=== PATIENT | male | born 1970 | race Caucasian/White ===

== ENCOUNTER 2022-05-01 12:46 | HOS | payer OTHER, SELFPAY ==
[2022-05-01 12:54] VITALS: BP 138/99; PULSE 84; RESP 16; TEMP 36.4; O2SAT 100
[2022-05-01 13:34] VITALS: PULSE 84; RESP 16
[2022-05-01] MEDS: HYDROmorphone HCL/PF (*CRX) 50 MG in SODIUM CHLORIDE 0.9% IV 95 ML IV CONT (13:34)
[2022-05-01] MEDS: LORazepam INJ (*CRX) 2 MG/ML VIAL 1 MG IV PUSH ×3 (14:06→19:39)
[2022-05-01 20:00] VITALS: PULSE 76; RESP 18; O2SAT 94
[2022-05-01 20:37] VITALS: BP 120/87; PULSE 76; RESP 18; TEMP 36.8; O2SAT 94
[2022-05-02 08:00] VITALS: PULSE 76; RESP 18; O2SAT 94
[2022-05-02] MEDS: LORazepam INJ (*CRX) 2 MG/ML VIAL 1 MG IV PUSH ×2 (12:12→18:36)
[2022-05-02 12:15] VITALS: PULSE 70; RESP 16
[2022-05-02] MEDS: HYDROmorphone HCL/PF (*CRX) 50 MG in SODIUM CHLORIDE 0.9% IV 95 ML IV CONT (12:15)
--- NOTE | 2022-05-02 12:51 | PM.IMHP ---
H&P: HPI History of Present Illness Date/Time: 05/02/22 12:51 Chief Complaint: Uncontrolled agitation Narrative: Mr. Ly is a 52-year-old gentleman who was on hospice for metastatic lung cancer. Over the past week he has not been eating or drinking much. He is recumbent mentally agitated and pocketing pills and spitting out oral medication. He was on scheduled Dilaudid. He has been taking only 10 mg of methadone twice daily with no additional pain medications. He refuses to take p.o. lorazepam. On May 01 he was agitated and aggressive even with his mother. Family was fatigued and unable to for care for him at home due to his physical aggression and mental agitation. He was trying to get out of bed but was unable. He has become incontinent. He is oriented to person only. He is able to make needs known most of the time. There has been no issue with coughing. He has had some intermittent poorly localized pain. No fevers or chills. No nausea or vomiting. [facility] Past Medical History Medical History (Updated 05/02/22 @ 12:57 by Saul Bass MD) COPD (chronic obstructive pulmonary disease) Lung cancer Surgical History Surgical History (Updated 11/09/19 @ 01:07 by Michael Dorsey) No history of previous surgery Family History Family History Mother No problems noted. Social History Social History (Updated 11/09/19 @ 01:07 by Michael Dorsey) Smoking packs per day: 1 Smoking cigarettes per day: 20.0 Smoking status: Current every day smoker Tobacco type: cigarettes Gender identity (if verbalized by the patient): Male Spiritual care concerns: Yes (preacher to come visit) Meds Home Medications and Allergies Home Medications Medication Instructions Recorded Confirmed Type No Home Medications 05/01/22 05/01/22 History Allergies Allergy/AdvReac Type Severity Reaction Status Date / Time acetaminophen AdvReac Mild ITCHY Verified 11/08/19 22:36 HYDROCODONE BIT AdvReac Mild ITCHY Uncoded 11/08/19 22:36 Vital Signs Vital Signs - 24 hr 05/01/22 12:54 05/01/22 13:34 05/01/22 20:37 Temperature 97.6 F 98.2 F Pulse Rate 84 84 76 Respiratory Rate 16 16 18 Blood Pressure 138/99 H 120/87 Pulse Oximetry 100 94 Oxygen Delivery 05/01/22 20:00 05/02/22 08:00 05/02/22 12:15 Temperature Pulse Rate 76 76 70 Respiratory Rate 18 18 16 Blood Pressure Pulse Oximetry 94 94 Oxygen Delivery Room Air Room Air 05/02/22 12:15 Temperature Pulse Rate 70 Respiratory Rate 16 Blood Pressure Pulse Oximetry Oxygen Delivery Exam Narrative: HEENT: PERRL, sclerae nonicteric, pharyngeal mucosa pink and intact NECK: No JVD CHEST: Coarse BS. Normal effort. HEART: NL S1/S2, regular, no murmur ABDOMEN: BS+, soft, nontender, no mass, no bruits EXTREMITIES: 2+ pitting ankle edema NEUROLOGIC: CN intact and symmetric to inspection. MUSCULOSKELETAL: Tone and strength symmetric but with generalized weakness PSYCH: Drowsy. Ox1. Assessment and Plan Assessment and plan (1) Palliative care by specialist: Code(s): Z51.5 - Encounter for palliative care Status: Acute Assessment and Plan: Meets inpatient hospice criteria due to requiring continuous IV hydromorphone for analgesia and intermittent IV lorazepam for agitation He is likely experiencing end of life delirium due to a combination of dehydration, malnutrition, metastatic lung cancer with possible hypercalcemia, and medication 7/4 current palliative regimen effective for symptom control (2) Lung cancer: Code(s): C34.90 - Malignant neoplasm of unspecified part of unspecified bronchus or lung Status: Acute
[2022-05-02 14:41] VITALS: BP 96/79; PULSE 80; RESP 20; TEMP 37.2; O2SAT 94
--- NOTE | 2022-05-02 15:29 | WPDPN ---
Progress Note: A&P Additional Plan Continue to monitor. Time Spent With Patient Time: 15 minutes. Subjective Date/time seen: 05/02/22 15:29 Review of Systems Review of Systems: Patient was lethargic and unable to answer most questions. He denied pain and looked comfortable. Exam Narrative: Lungs are diminished to all lobes. No gross deformities noted. Abdomen is soft, non-tender, with + bowel sounds. Pt has +1 pitting edema to bilateral lower extremities. Cardiac regular rate and rhythm. Denies pain and is well controlled on Dilaudid 2 mg/hr. Has only received 1 prn dose of Ativan since arrival. Family at bedside and coping appropriately. No further questions at this time. Spoke with RN Cyndee who stated that she has no concerns at this time and knows to call [facility] with any needs or change in condition. No mottling. Good radial pulses. No dyspnea or apnea noted. Const: Other: Patient was lethargic and oriented to self and place, at times. Objective Data Vital Signs Vital Signs: Vital Signs - 24 hr 05/01/22 20:37 05/01/22 20:00 05/02/22 08:00 Temperature 36.8 C Pulse Rate 76 76 76 Respiratory Rate 18 18 18 Blood Pressure 120/87 Pulse Oximetry 94 94 94 Oxygen Delivery Room Air Room Air 05/02/22 12:15 05/02/22 12:15 05/02/22 14:41 Temperature 37.2 C Pulse Rate 70 70 80 Respiratory Rate 16 16 20 Blood Pressure 96/79 L Pulse Oximetry 94 Oxygen Delivery Intake/Output Intake/Output: Intake & Output 04/29/22 04/30/22 05/01/22 05/02/22 23:59 23:59 23:59 23:59 Intake Total 100 Balance 100 Meds/Results Medications: Active Medications Generic Name Dose Route Start Last Admin Trade Name Freq PRN Reason Stop Dose Admin Acetaminophen 650 mg 05/01/22 13:15 Acetaminophen 650 Mg Suppository RECTAL Q6H PRN Fever Artificial Tears 1 drop 05/01/22 21:00 05/02/22 11:32 Artificial Tears Ophth Soln 15 Ml Bottle EACH EYE Not Given Q12H ALOK Artificial Tears 1 drop 05/01/22 13:16 Artificial Tears Ophth Soln 15 Ml Bottle EACH EYE PRN PRN DRY EYES Bisacodyl 10 mg 05/01/22 13:15 Bisacodyl 10 Mg Suppository RECTAL DAILY PRN Constipation Glycopyrrolate 0.1 mg 05/01/22 13:14 Glycopyrrolate Inj (*Sp) 0.2 Mg/Ml Vial IV PUSH Q6H PRN CONGESTION/SECRETIONS Hydromorphone HCl 2 mg 05/01/22 13:12 Hydromorphone Hcl Inj (*Crx) 1 Mg/Ml Syr IV PUSH Q2H PRN PAIN/DYSPNEA Hydromorphone HCl 50 mg/ 100 mls @ 2 mls/hr 05/01/22 13:15 05/02/22 12:15 Sodium Chloride IV CONT 1 mg/hr .Q24H ALOK 2 mls/hr Administration 1 MG/HR Lorazepam 1 mg 05/01/22 13:13 05/02/22 12:12 Lorazepam Inj (*Crx) 2 Mg/Ml Vial IV PUSH 1 mg Q2H PRN Administration Anxiety Olanzapine 2.5 mg 05/01/22 13:08 Olanzapine 10 Mg Inj Vial IM Q6H PRN Agitation Prochlorperazine Edisylate 10 mg 05/01/22 13:15 Prochlorperazine Edisylate 10 Mg/2 Ml Vial IV PUSH Q6H PRN Nausea And Vomiting
[2022-05-02 20:00] VITALS: BP 112/83; PULSE 80; PULSE 88; RESP 16; RESP 20; TEMP 36.7; O2SAT 90; O2SAT 94
[2022-05-03] MEDS: LORazepam INJ (*CRX) 2 MG/ML VIAL 1 MG IV PUSH ×3 (04:20→21:43)
[2022-05-03 14:00] VITALS: BP 113/81; PULSE 80; RESP 14; TEMP 36.3; O2SAT 87
[2022-05-03] MEDS: HYDROmorphone HCL/PF (*CRX) 50 MG in SODIUM CHLORIDE 0.9% IV 95 ML IV CONT (14:35)
--- NOTE | 2022-05-03 17:04 | PM.IMPN ---
Progress Note: A&P Assessment and Plan (1) Palliative care by specialist: Code(s): Z51.5 - Encounter for palliative care Status: Acute Assessment and Plan: Meets inpatient hospice criteria due to requiring continuous IV hydromorphone for analgesia and intermittent IV lorazepam for agitation He is likely experiencing end of life delirium due to a combination of dehydration, malnutrition, metastatic lung cancer with possible hypercalcemia, and medication 05/02 current palliative regimen effective for symptom control 05/03 current palliative regimen effective for symptom control (2) Lung cancer: Code(s): C34.90 - Malignant neoplasm of unspecified part of unspecified bronchus or lung Status: Acute Subjective Date/time seen: 05/03/22 17:04 Intermittently tearful. Comfortable otherwise. Minimal PO intake. At peace and ready to . Review of Systems Review of Systems: ROS unobtainable: Yes unobtainable due to medical condition Exam Narrative: HEENT: PERRL, sclerae nonicteric, pharyngeal mucosa pink and intact NECK: No JVD CHEST: Coarse BS. Normal effort. HEART: NL S1/S2, regular, no murmur ABDOMEN: BS+, soft, nontender, no mass, no bruits EXTREMITIES: 2+ pitting ankle edema NEUROLOGIC: CN intact and symmetric to inspection. MUSCULOSKELETAL: Tone and strength symmetric but with generalized weakness PSYCH: Drowsy. Ox1. Objective Data Vital Signs Vital Signs: Vital Signs - 24 hr 05/02/22 20:00 05/02/22 20:00 05/03/22 14:00 Temperature 98.0 F 97.3 F L Pulse Rate 80 88 80 Respiratory Rate 20 16 14 Blood Pressure 112/83 113/81 Pulse Oximetry 94 90 87 L Oxygen Delivery Room Air Intake/Output Intake/Output: Intake & Output 04/30/22 05/01/22 05/02/22 05/03/22 23:59 23:59 23:59 23:59 Intake Total 100 100 Output Total 150 Balance 100 -50 Meds/Results Medications: Active Medications Generic Name Dose Route Start Last Admin Trade Name Freq PRN Reason Stop Dose Admin Acetaminophen 650 mg 05/01/22 13:15 Acetaminophen 650 Mg Suppository RECTAL Q6H PRN Fever Artificial Tears 1 drop 05/01/22 21:00 05/03/22 10:15 Artificial Tears Ophth Soln 15 Ml Bottle EACH EYE Not Given Q12H ALOK Artificial Tears 1 drop 05/01/22 13:16 Artificial Tears Ophth Soln 15 Ml Bottle EACH EYE PRN PRN DRY EYES Bisacodyl 10 mg 05/01/22 13:15 Bisacodyl 10 Mg Suppository RECTAL DAILY PRN Constipation Glycopyrrolate 0.1 mg 05/01/22 13:14 Glycopyrrolate Inj (*Sp) 0.2 Mg/Ml Vial IV PUSH Q6H PRN CONGESTION/SECRETIONS Hydromorphone HCl 2 mg 05/01/22 13:12 Hydromorphone Hcl Inj (*Crx) 1 Mg/Ml Syr IV PUSH Q2H PRN PAIN/DYSPNEA Hydromorphone HCl 50 mg/ 100 mls @ 2 mls/hr 05/01/22 13:15 05/03/22 14:35 Sodium Chloride IV CONT 1 mg/hr .Q24H ALOK 2 mls/hr Administration 1 MG/HR Lorazepam 1 mg 05/01/22 13:13 05/03/22 14:34 Lorazepam Inj (*Crx) 2 Mg/Ml Vial IV PUSH 1 mg Q2H PRN Administration Anxiety Olanzapine 2.5 mg 05/01/22 13:08 Olanzapine 10 Mg Inj Vial IM Q6H PRN Agitation Prochlorperazine Edisylate 10 mg 05/01/22 13:15 Prochlorperazine Edisylate 10 Mg/2 Ml Vial IV PUSH Q6H PRN Nausea And Vomiting
[2022-05-03 20:00] VITALS: BP 95/77; PULSE 85; RESP 16; TEMP 37.6; O2SAT 91
[2022-05-03] MEDS: ARTIFICIAL TEARS OPHTH SOLN 15 ML BOTTLE 1 DROP EACH EYE (21:00)
[2022-05-04 07:45] VITALS: BP 92/65; PULSE 81; RESP 14; TEMP 36.7; O2SAT 94
[2022-05-04] MEDS: LORazepam INJ (*CRX) 2 MG/ML VIAL 1 MG IV PUSH ×2 (12:28→16:26)
[2022-05-04] MEDS: HYDROmorphone HCL/PF (*CRX) 50 MG in SODIUM CHLORIDE 0.9% IV 95 ML IV CONT (15:17)
--- NOTE | 2022-05-04 16:29 | PM.IMPN ---
Progress Note: A&P Assessment and Plan (1) Palliative care by specialist: Code(s): Z51.5 - Encounter for palliative care Status: Acute Assessment and Plan: Meets inpatient hospice criteria due to requiring continuous IV hydromorphone for analgesia and intermittent IV lorazepam for agitation He is likely experiencing end of life delirium due to a combination of dehydration, malnutrition, metastatic lung cancer with possible hypercalcemia, and medication 05/02 current palliative regimen effective for symptom control 05/03 current palliative regimen effective for symptom control 05/04 scheduled olanzapine and lorazepam (2) Lung cancer: Code(s): C34.90 - Malignant neoplasm of unspecified part of unspecified bronchus or lung Status: Acute Subjective Date/time seen: 05/04/22 16:29 Pain controlled. But anxious after lorazepam wears off. Minimal PO intake. Review of Systems Review of Systems: ROS unobtainable: Yes unobtainable due to medical condition Exam Narrative: HEENT: PERRL, sclerae nonicteric, pharyngeal mucosa pink and intact NECK: No JVD CHEST: Coarse BS. Normal effort. HEART: NL S1/S2, regular, no murmur ABDOMEN: BS+, soft, nontender, no mass, no bruits EXTREMITIES: 2+ pitting ankle edema NEUROLOGIC: CN intact and symmetric to inspection. MUSCULOSKELETAL: Tone and strength symmetric but with generalized weakness PSYCH: Drowsy. Ox1. Objective Data Vital Signs Vital Signs: Vital Signs - 24 hr 05/03/22 20:00 05/04/22 07:45 05/04/22 09:19 Temperature 99.7 F H 98.0 F Pulse Rate 85 81 Respiratory Rate 16 14 Blood Pressure 95/77 L 92/65 L Pulse Oximetry 91 94 Oxygen Delivery Room Air Intake/Output Intake/Output: Intake & Output 05/01/22 05/02/22 05/03/22 05/04/22 23:59 23:59 23:59 23:59 Intake Total 100 100 100 Output Total 150 200 Balance 100 -50 -100 Meds/Results Medications: Active Medications Generic Name Dose Route Start Last Admin Trade Name Freq PRN Reason Stop Dose Admin Acetaminophen 650 mg 05/01/22 13:15 Acetaminophen 650 Mg Suppository RECTAL Q6H PRN Fever Artificial Tears 1 drop 05/01/22 21:00 05/04/22 09:19 Artificial Tears Ophth Soln 15 Ml Bottle EACH EYE Not Given Q12H ALOK Artificial Tears 1 drop 05/01/22 13:16 Artificial Tears Ophth Soln 15 Ml Bottle EACH EYE PRN PRN DRY EYES Bisacodyl 10 mg 05/01/22 13:15 Bisacodyl 10 Mg Suppository RECTAL DAILY PRN Constipation Glycopyrrolate 0.1 mg 05/01/22 13:14 Glycopyrrolate Inj (*Sp) 0.2 Mg/Ml Vial IV PUSH Q6H PRN CONGESTION/SECRETIONS Hydromorphone HCl 2 mg 05/01/22 13:12 Hydromorphone Hcl Inj (*Crx) 1 Mg/Ml Syr IV PUSH Q2H PRN PAIN/DYSPNEA Hydromorphone HCl 50 mg/ 100 mls @ 2 mls/hr 05/01/22 13:15 05/04/22 15:17 Sodium Chloride IV CONT 1 mg/hr .Q24H ALOK 2 mls/hr Administration 1 MG/HR Lorazepam 1 mg 05/01/22 13:13 05/04/22 16:26 Lorazepam Inj (*Crx) 2 Mg/Ml Vial IV PUSH 1 mg Q2H PRN Administration Anxiety Olanzapine 2.5 mg 05/01/22 13:08 Olanzapine 10 Mg Inj Vial IM Q6H PRN Agitation Prochlorperazine Edisylate 10 mg 05/01/22 13:15 Prochlorperazine Edisylate 10 Mg/2 Ml Vial IV PUSH Q6H PRN Nausea And Vomiting
[2022-05-04] MEDS: WATER, STERILE FOR INJECTION 10 ML VIAL XX (16:31)
[2022-05-04] MEDS: OLANZapine 10 MG INJ VIAL 2.5 MG IM ×2 (16:33→20:17)
[2022-05-04 20:00] VITALS: BP 99/70; PULSE 89; RESP 12; TEMP 37.7; O2SAT 92
[2022-05-04] MEDS: ARTIFICIAL TEARS OPHTH SOLN 15 ML BOTTLE 1 DROP EACH EYE (20:17)
[2022-05-04] MEDS: HYDROmorphone HCL INJ (*CRX) 1 MG/ML SYR 2 MG IV PUSH (21:15)
[2022-05-05] MEDS: LORazepam INJ (*CRX) 2 MG/ML VIAL 1 MG IV PUSH ×4 (06:29→21:18)
[2022-05-05 08:00] VITALS: BP 103/78; PULSE 87; RESP 14; TEMP 36.7; O2SAT 94
[2022-05-05] MEDS: WATER, STERILE FOR INJECTION 10 ML VIAL XX (09:40)
[2022-05-05] MEDS: OLANZapine 10 MG INJ VIAL 2.5 MG IM ×2 (09:40→20:54)
[2022-05-05] MEDS: ARTIFICIAL TEARS OPHTH SOLN 15 ML BOTTLE 1 DROP EACH EYE (09:40)
[2022-05-05] MEDS: HYDROmorphone HCL/PF (*CRX) 50 MG in SODIUM CHLORIDE 0.9% IV 95 ML IV CONT (13:04)
--- NOTE | 2022-05-05 16:03 | PM.IMPN ---
Progress Note: A&P Assessment and Plan (1) Palliative care by specialist: Code(s): Z51.5 - Encounter for palliative care Status: Acute Assessment and Plan: Meets inpatient hospice criteria due to requiring continuous IV hydromorphone for analgesia and intermittent IV lorazepam for agitation He is likely experiencing end of life delirium due to a combination of dehydration, malnutrition, metastatic lung cancer with possible hypercalcemia, and medication 05/02 current palliative regimen effective for symptom control 05/03 current palliative regimen effective for symptom control 05/04 scheduled olanzapine and lorazepam 05/05 continue current palliative regimen and discussed prognosis with family at bedside (2) Lung cancer: Code(s): C34.90 - Malignant neoplasm of unspecified part of unspecified bronchus or lung Status: Acute Subjective Date/time seen: 05/05/22 16:03 Much more comfortable since bolus dose of hydromorphone last p.m.. Awakens but not distraught or agitated. Occasionally tries to sit up. Review of Systems Review of Systems: ROS unobtainable: Yes unobtainable due to medical condition Exam Narrative: HEENT: PERRL, sclerae nonicteric, pharyngeal mucosa pink and intact NECK: No JVD CHEST: Coarse BS. Normal effort. HEART: NL S1/S2, regular, no murmur ABDOMEN: BS+, soft, nontender, no mass, no bruits EXTREMITIES: 2+ pitting ankle edema NEUROLOGIC: CN intact and symmetric to inspection. MUSCULOSKELETAL: Tone and strength symmetric but with generalized weakness PSYCH: Drowsy. Ox1. Objective Data Vital Signs Vital Signs: Vital Signs - 24 hr 05/04/22 20:00 05/05/22 08:00 05/05/22 09:40 Temperature 99.8 F H 98.1 F Pulse Rate 89 87 Respiratory Rate 12 14 Blood Pressure 99/70 L 103/78 Pulse Oximetry 92 94 Oxygen Delivery Room Air Intake/Output Intake/Output: Intake & Output 05/02/22 05/03/22 05/04/22 05/05/22 23:59 23:59 23:59 23:59 Intake Total 100 100 100 100 Output Total 150 200 Balance 100 -50 -100 100 Meds/Results Medications: Active Medications Generic Name Dose Route Start Last Admin Trade Name Freq PRN Reason Stop Dose Admin Acetaminophen 650 mg 05/01/22 13:15 Acetaminophen 650 Mg Suppository RECTAL Q6H PRN Fever Artificial Tears 1 drop 05/01/22 21:00 05/05/22 09:40 Artificial Tears Ophth Soln 15 Ml Bottle EACH EYE 1 drop Q12H ALOK Administration Artificial Tears 1 drop 05/01/22 13:16 Artificial Tears Ophth Soln 15 Ml Bottle EACH EYE PRN PRN DRY EYES Bisacodyl 10 mg 05/01/22 13:15 Bisacodyl 10 Mg Suppository RECTAL DAILY PRN Constipation Glycopyrrolate 0.1 mg 05/01/22 13:14 Glycopyrrolate Inj (*Sp) 0.2 Mg/Ml Vial IV PUSH Q6H PRN CONGESTION/SECRETIONS Hydromorphone HCl 2 mg 05/01/22 13:12 05/04/22 21:15 Hydromorphone Hcl Inj (*Crx) 1 Mg/Ml Syr IV PUSH 2 mg Q2H PRN Administration PAIN/DYSPNEA Hydromorphone HCl 50 mg/ 100 mls @ 2 mls/hr 05/01/22 13:15 05/05/22 13:04 Sodium Chloride IV CONT 1 mg/hr .Q24H ALOK 2 mls/hr Administration 1 MG/HR Lorazepam 1 mg 05/01/22 13:13 05/04/22 16:26 Lorazepam Inj (*Crx) 2 Mg/Ml Vial IV PUSH 1 mg Q2H PRN Administration Anxiety Lorazepam 1 mg 05/04/22 18:00 05/05/22 13:04 Lorazepam Inj (*Crx) 2 Mg/Ml Vial IV PUSH 1 mg Q6HR ALOK Administration Olanzapine 2.5 mg 05/01/22 13:08 05/04/22 16:33 Olanzapine 10 Mg Inj Vial IM 2.5 mg Q6H PRN Administration Agitation Olanzapine 2.5 mg 05/04/22 21:00 05/05/22 09:40 Olanzapine 10 Mg Inj Vial IM 2.5 mg Q12HR ALOK Administration Prochlorperazine Edisylate 10 mg 05/01/22 13:15 Prochlorperazine Edisylate 10 Mg/2 Ml Vial IV PUSH Q6H PRN Nausea And Vomiting
[2022-05-05 20:00] VITALS: BP 90/75; PULSE 86; RESP 10; TEMP 36.9; O2SAT 94
[2022-05-05 22:05] VITALS: BP 90/75; PULSE 86; RESP 10; TEMP 36.9; O2SAT 94
[2022-05-06] MEDS: ARTIFICIAL TEARS OPHTH SOLN 15 ML BOTTLE 1 DROP EACH EYE ×3 (00:58→20:25)
[2022-05-06] MEDS: LORazepam INJ (*CRX) 2 MG/ML VIAL 1 MG IV PUSH ×6 (00:58→23:36)
[2022-05-06 07:57] VITALS: BP 101/80; PULSE 88; RESP 10; TEMP 36.1; O2SAT 97
[2022-05-06] MEDS: OLANZapine 10 MG INJ VIAL 2.5 MG IM ×2 (08:26→20:26)
[2022-05-06] MEDS: HYDROmorphone HCL/PF (*CRX) 50 MG in SODIUM CHLORIDE 0.9% IV 95 ML IV CONT (13:10)
--- NOTE | 2022-05-06 16:49 | PM.IMPN ---
Progress Note: A&P Assessment and Plan (1) Palliative care by specialist: Code(s): Z51.5 - Encounter for palliative care Status: Acute Assessment and Plan: Meets inpatient hospice criteria due to requiring continuous IV hydromorphone for analgesia and intermittent IV lorazepam for agitation He is likely experiencing end of life delirium due to a combination of dehydration, malnutrition, metastatic lung cancer with possible hypercalcemia, and medication 05/02 current palliative regimen effective for symptom control 05/03 current palliative regimen effective for symptom control 05/04 scheduled olanzapine and lorazepam 05/05 continue current palliative regimen and discussed prognosis with family at bedside 05/06 increased olanzapine to 5mg q 12 hrs (2) Lung cancer: Code(s): C34.90 - Malignant neoplasm of unspecified part of unspecified bronchus or lung Status: Acute Subjective Date/time seen: 05/06/22 16:49 Restless upon awakening. No pain. Minimal PO intake. Review of Systems Review of Systems: ROS unobtainable: Yes unobtainable due to medical condition Exam Narrative: HEENT: PERRL, sclerae nonicteric, pharyngeal mucosa pink and intact NECK: No JVD CHEST: Coarse BS. Normal effort. HEART: NL S1/S2, regular, no murmur ABDOMEN: BS+, soft, nontender, no mass, no bruits EXTREMITIES: no pitting ankle edema NEUROLOGIC: CN intact and symmetric to inspection. MUSCULOSKELETAL: Tone and strength symmetric but with generalized weakness PSYCH: Drowsy. Ox1. Objective Data Vital Signs Vital Signs: Vital Signs - 24 hr 05/05/22 20:00 05/05/22 22:05 05/06/22 07:57 Temperature 98.4 F 98.4 F 97 F L Pulse Rate 86 86 88 Respiratory Rate 10 L 10 L 10 L Blood Pressure 90/75 L 90/75 L 101/80 Pulse Oximetry 94 94 97 Intake/Output Intake/Output: Intake & Output 05/03/22 05/04/22 05/05/22 05/06/22 23:59 23:59 23:59 23:59 Intake Total 100 100 100 30 Output Total 150 200 Balance -50 -100 100 30 Meds/Results Medications: Active Medications Generic Name Dose Route Start Last Admin Trade Name Freq PRN Reason Stop Dose Admin Acetaminophen 650 mg 05/01/22 13:15 Acetaminophen 650 Mg Suppository RECTAL Q6H PRN Fever Artificial Tears 1 drop 05/01/22 21:00 05/06/22 08:26 Artificial Tears Ophth Soln 15 Ml Bottle EACH EYE 1 drop Q12H ALOK Administration Artificial Tears 1 drop 05/01/22 13:16 Artificial Tears Ophth Soln 15 Ml Bottle EACH EYE PRN PRN DRY EYES Bisacodyl 10 mg 05/01/22 13:15 Bisacodyl 10 Mg Suppository RECTAL DAILY PRN Constipation Glycopyrrolate 0.1 mg 05/01/22 13:14 Glycopyrrolate Inj (*Sp) 0.2 Mg/Ml Vial IV PUSH Q6H PRN CONGESTION/SECRETIONS Hydromorphone HCl 2 mg 05/01/22 13:12 05/04/22 21:15 Hydromorphone Hcl Inj (*Crx) 1 Mg/Ml Syr IV PUSH 2 mg Q2H PRN Administration PAIN/DYSPNEA Hydromorphone HCl 50 mg/ 100 mls @ 2 mls/hr 05/01/22 13:15 05/06/22 13:10 Sodium Chloride IV CONT 1 mg/hr .Q24H ALOK 2 mls/hr Administration 1 MG/HR Lorazepam 1 mg 05/01/22 13:13 05/06/22 06:38 Lorazepam Inj (*Crx) 2 Mg/Ml Vial IV PUSH 1 mg Q2H PRN Administration Anxiety Lorazepam 1 mg 05/04/22 18:00 05/06/22 11:41 Lorazepam Inj (*Crx) 2 Mg/Ml Vial IV PUSH 1 mg Q6HR ALOK Administration Olanzapine 2.5 mg 05/01/22 13:08 05/04/22 16:33 Olanzapine 10 Mg Inj Vial IM 2.5 mg Q6H PRN Administration Agitation Olanzapine 2.5 mg 05/04/22 21:00 05/06/22 08:26 Olanzapine 10 Mg Inj Vial IM 2.5 mg Q12HR ALOK Administration Prochlorperazine Edisylate 10 mg 05/01/22 13:15 Prochlorperazine Edisylate 10 Mg/2 Ml Vial IV PUSH Q6H PRN Nausea And Vomiting
[2022-05-06 20:00] VITALS: BP 95/67; PULSE 98; RESP 12; TEMP 36.5; O2SAT 94
[2022-05-07] MEDS: diazePAM INJ (*CRX) 10 MG/2 ML SYRINGE 5 MG IV PUSH ×2 (07:54→18:31)
[2022-05-07 08:00] VITALS: BP 107/78; PULSE 91; PULSE 98; RESP 12; TEMP 36.9; O2SAT 92; O2SAT 94
[2022-05-07] MEDS: ARTIFICIAL TEARS OPHTH SOLN 15 ML BOTTLE 1 DROP EACH EYE ×2 (08:07→21:25)
[2022-05-07] MEDS: HYDROmorphone HCL INJ (*CRX) 1 MG/ML SYR 2 MG IV PUSH ×2 (08:11→18:31)
[2022-05-07] MEDS: OLANZapine 10 MG INJ VIAL 2.5 MG IM ×3 (08:14→18:31)
--- NOTE | 2022-05-07 09:39 | PC.NURSE ---
pt remains restless and agitated, switched from ativan 1mg to Valium 5mg, family inquiring why, and called [facility] to adjust pt medication r/t aggitation and restlessness.
--- NOTE | 2022-05-07 09:41 | PC.NURSE ---
Spoke with Nina lakhani, Emma CHUNG here is kar now disguising pt concerns with pt restlessness and agitation.
--- NOTE | 2022-05-07 10:05 | PC.NURSE ---
ativan was switched to valium r/t iv ativan shortage
[2022-05-07] MEDS: HYDROmorphone HCL/PF (*CRX) 50 MG in SODIUM CHLORIDE 0.9% IV 95 ML IV CONT (12:41)
--- NOTE | 2022-05-07 18:40 | PC.NURSE ---
Addendum entered by Renee Akbar RN 05/07/22 18:45: wrong pt Original Note: called to pt room pt heading myself in head and yelling and chanting [facility] BY , [facility] vital [id number]/73 99% ra hr 108 rr 20, pt didn't respond to this nurse continued to chant.
[2022-05-07 20:00] VITALS: BP 94/75; PULSE 97; RESP 10; TEMP 37.2; O2SAT 94
[2022-05-07] MEDS: OLANZapine 10 MG INJ VIAL 5 MG IM (21:24)
[2022-05-08] MEDS: diazePAM INJ (*CRX) 10 MG/2 ML SYRINGE 5 MG IV PUSH ×2 (03:16→08:30)
[2022-05-08] MEDS: HYDROmorphone HCL INJ (*CRX) 1 MG/ML SYR 2 MG IV PUSH ×3 (03:19→13:16)
[2022-05-08] MEDS: OLANZapine 10 MG INJ VIAL 2.5 MG IM (04:10)
[2022-05-08 07:46] VITALS: PULSE 97; RESP 10; O2SAT 94
[2022-05-08 08:00] VITALS: BP 112/89; PULSE 89; RESP 18; TEMP 36.2; O2SAT 96
[2022-05-08] MEDS: OLANZapine 10 MG INJ VIAL 5 MG IM ×2 (08:26→21:42)
[2022-05-08] MEDS: ARTIFICIAL TEARS OPHTH SOLN 15 ML BOTTLE 1 DROP EACH EYE ×2 (08:27→21:42)
--- NOTE | 2022-05-08 10:13 | PM.IMPN ---
Progress Note: A&P Assessment and Plan (1) Palliative care by specialist: Code(s): Z51.5 - Encounter for palliative care Status: Acute Assessment and Plan: Meets inpatient hospice criteria due to requiring continuous IV hydromorphone for analgesia and intermittent IV lorazepam for agitation He is likely experiencing end of life delirium due to a combination of dehydration, malnutrition, metastatic lung cancer with possible hypercalcemia, and medication 05/02 current palliative regimen effective for symptom control 05/03 current palliative regimen effective for symptom control 05/04 scheduled olanzapine and lorazepam 05/05 continue current palliative regimen and discussed prognosis with family at bedside 05/06 increased olanzapine to 5mg q 12 hrs 05/07 olanzapine not increased 05/06 as requesed, but accomplished today, switched to diazepam due to lorazepam shortage 05/08 comfortabe so no med changes (2) Lung cancer: Code(s): C34.90 - Malignant neoplasm of unspecified part of unspecified bronchus or lung Status: Acute Subjective Date/time seen: 05/08/22 10:13 resting comfortably since med changes 05/07 Review of Systems Review of Systems: ROS unobtainable: Yes unobtainable due to medical condition Exam Narrative: HEENT: PERRL, sclerae nonicteric, pharyngeal mucosa pink and intact NECK: No JVD CHEST: Coarse BS. Normal effort. HEART: NL S1/S2, regular, no murmur ABDOMEN: BS+, soft, nontender, no mass, no bruits EXTREMITIES: no pitting ankle edema NEUROLOGIC: CN intact and symmetric to inspection. MUSCULOSKELETAL: Tone and strength symmetric but with generalized weakness PSYCH: sleeping Objective Data Vital Signs Vital Signs: Vital Signs - 24 hr 05/07/22 20:00 05/08/22 07:46 Temperature 99.0 F Pulse Rate 97 97 Respiratory Rate 10 L 10 L Blood Pressure 94/75 L Pulse Oximetry 94 94 Oxygen Delivery Room Air Intake/Output Intake/Output: Intake & Output 05/05/22 05/06/22 05/07/22 05/08/22 23:59 23:59 23:59 23:59 Intake Total 100 30 54 480 Balance 100 30 54 480 Meds/Results Medications: Active Medications Generic Name Dose Route Start Last Admin Trade Name Freq PRN Reason Stop Dose Admin Acetaminophen 650 mg 05/01/22 13:15 Acetaminophen 650 Mg Suppository RECTAL Q6H PRN Fever Artificial Tears 1 drop 05/01/22 21:00 05/08/22 08:27 Artificial Tears Ophth Soln 15 Ml Bottle EACH EYE 1 drop Q12H ALOK Administration Artificial Tears 1 drop 05/01/22 13:16 Artificial Tears Ophth Soln 15 Ml Bottle EACH EYE PRN PRN DRY EYES Bisacodyl 10 mg 05/01/22 13:15 Bisacodyl 10 Mg Suppository RECTAL DAILY PRN Constipation Diazepam 5 mg 05/07/22 04:03 05/08/22 08:30 Diazepam Inj (*Crx) 10 Mg/2 Ml Syringe IV PUSH 5 mg Q4H PRN Administration AGITATION Glycopyrrolate 0.1 mg 05/01/22 13:14 Glycopyrrolate Inj (*Sp) 0.2 Mg/Ml Vial IV PUSH Q6H PRN CONGESTION/SECRETIONS Hydromorphone HCl 2 mg 05/01/22 13:12 05/08/22 08:30 Hydromorphone Hcl Inj (*Crx) 1 Mg/Ml Syr IV PUSH 2 mg Q2H PRN Administration PAIN/DYSPNEA Hydromorphone HCl 50 mg/ 100 mls @ 2 mls/hr 05/01/22 13:15 05/07/22 12:41 Sodium Chloride IV CONT 1 mg/hr .Q24H ALOK 2 mls/hr Administration 1 MG/HR Olanzapine 5 mg 05/07/22 21:00 05/08/22 08:26 Olanzapine 10 Mg Inj Vial IM 5 mg Q12HR ALOK Administration Olanzapine 2.5 mg 05/07/22 10:43 05/08/22 04:10 Olanzapine 10 Mg Inj Vial IM 2.5 mg Q6H PRN Administration Agitation Prochlorperazine Edisylate 10 mg 05/01/22 13:15 Prochlorperazine Edisylate 10 Mg/2 Ml Vial IV PUSH Q6H PRN Nausea And Vomiting
--- NOTE | 2022-05-08 13:06 | PC.NURSE ---
NEW HOSPICE ORDERS MD CONTEH PHENOBARTIBAL 60 MG iv NOW DOSE ( ALREADY PUT IN) PHENOBARTIBAL 60 MG IV PUSH Q8H SCHEDULED VALIUM 10 MG iV PUSH SCHEDULED VALIUM 5 MG iv PUSH Q3H PRN
[2022-05-08] MEDS: PHENobarbitaL sodium (*CRX) 130 MG/ML VIAL 60 MG IV PUSH ×2 (13:12→21:41)
[2022-05-08 14:03] VITALS: PULSE 89; RESP 18
[2022-05-08] MEDS: HYDROmorphone HCL/PF (*CRX) 50 MG in SODIUM CHLORIDE 0.9% IV 95 ML IV CONT (14:03)
[2022-05-08] MEDS: diazePAM INJ (*CRX) 10 MG/2 ML SYRINGE IV PUSH (17:07)
[2022-05-08 20:00] VITALS: BP 91/71; PULSE 100; RESP 8; TEMP 36.4; O2SAT 95
[2022-05-08] MEDS: WATER, STERILE FOR INJECTION 10 ML VIAL XX (23:25)
[2022-05-09] MEDS: diazePAM INJ (*CRX) 10 MG/2 ML SYRINGE IV PUSH ×5 (00:11→23:50)
[2022-05-09] MEDS: HYDROmorphone HCL INJ (*CRX) 1 MG/ML SYR 2 MG IV PUSH ×2 (04:11→17:04)
[2022-05-09] MEDS: diazePAM INJ (*CRX) 10 MG/2 ML SYRINGE 5 MG IV PUSH (04:18)
[2022-05-09] MEDS: PHENobarbitaL sodium (*CRX) 130 MG/ML VIAL 60 MG IV PUSH ×3 (06:39→21:09)
[2022-05-09 08:00] VITALS: BP 89/72; PULSE 90; RESP 6; TEMP 36.4; O2SAT 90
[2022-05-09] MEDS: OLANZapine 10 MG INJ VIAL 5 MG IM ×2 (09:20→21:09)
[2022-05-09] MEDS: ARTIFICIAL TEARS OPHTH SOLN 15 ML BOTTLE 1 DROP EACH EYE ×2 (09:20→21:09)
[2022-05-09] MEDS: WATER, STERILE FOR INJECTION 10 ML VIAL XX ×3 (09:21→22:00)
--- NOTE | 2022-05-09 12:13 | PM.IMPN ---
Progress Note: A&P Assessment and Plan (1) Palliative care by specialist: Code(s): Z51.5 - Encounter for palliative care Status: Acute Assessment and Plan: Meets inpatient hospice criteria due to requiring continuous IV hydromorphone for analgesia and intermittent IV lorazepam for agitation He is likely experiencing end of life delirium due to a combination of dehydration, malnutrition, metastatic lung cancer with possible hypercalcemia, and medication 05/02 current palliative regimen effective for symptom control 05/03 current palliative regimen effective for symptom control 05/04 scheduled olanzapine and lorazepam 05/05 continue current palliative regimen and discussed prognosis with family at bedside 05/06 increased olanzapine to 5mg q 12 hrs 05/07 olanzapine not increased 05/06 as requesed, but accomplished today, switched to diazepam due to lorazepam shortage 05/08 comfortabe so no med changes 05/09 continued palliative sedation (2) Lung cancer: Code(s): C34.90 - Malignant neoplasm of unspecified part of unspecified bronchus or lung Status: Acute Subjective Date/time seen: 05/09/22 12:13 Coughed up blood 05/08. Comfortable since phenobarbibal initiated 05/08. Review of Systems Review of Systems: ROS unobtainable: Yes unobtainable due to medical condition Exam Narrative: HEENT: PERRL, sclerae nonicteric, pharyngeal mucosa pink and intact NECK: No JVD CHEST: Coarse BS. Normal effort. HEART: NL S1/S2, regular, no murmur ABDOMEN: BS+, soft, nontender, no mass, no bruits EXTREMITIES: no pitting ankle edema NEUROLOGIC: CN intact and symmetric to inspection. MUSCULOSKELETAL: Tone and strength symmetric but with generalized weakness PSYCH: sleeping Objective Data Vital Signs Vital Signs: Vital Signs - 24 hr 05/08/22 14:03 05/08/22 14:03 05/08/22 20:00 Temperature 97.6 F Pulse Rate 89 89 100 Respiratory Rate 18 18 8 L Blood Pressure 91/71 L Pulse Oximetry 95 Oxygen Delivery 05/09/22 08:00 05/09/22 09:20 Temperature 97.5 F L Pulse Rate 90 Respiratory Rate 6 L Blood Pressure 89/72 L Pulse Oximetry 90 Oxygen Delivery Room Air Intake/Output Intake/Output: Intake & Output 05/06/22 05/07/22 05/08/22 05/09/22 23:59 23:59 23:59 23:59 Intake Total 30 54 624 0 Balance 30 54 624 0 Meds/Results Medications: Active Medications Generic Name Dose Route Start Last Admin Trade Name Freq PRN Reason Stop Dose Admin Acetaminophen 650 mg 05/01/22 13:15 Acetaminophen 650 Mg Suppository RECTAL Q6H PRN Fever Artificial Tears 1 drop 05/01/22 21:00 05/09/22 09:20 Artificial Tears Ophth Soln 15 Ml Bottle EACH EYE 1 drop Q12H ALOK Administration Artificial Tears 1 drop 05/01/22 13:16 Artificial Tears Ophth Soln 15 Ml Bottle EACH EYE PRN PRN DRY EYES Bisacodyl 10 mg 05/01/22 13:15 Bisacodyl 10 Mg Suppository RECTAL DAILY PRN Constipation Diazepam 5 mg 05/08/22 13:10 05/09/22 04:18 Diazepam Inj (*Crx) 10 Mg/2 Ml Syringe IV PUSH 5 mg Q3H PRN Administration AGITATION Diazepam 10 mg 05/08/22 12:00 05/09/22 06:38 Diazepam Inj (*Crx) 10 Mg/2 Ml Syringe IV PUSH 10 mg Q6HR ALOK Administration Glycopyrrolate 0.1 mg 05/01/22 13:14 Glycopyrrolate Inj (*Sp) 0.2 Mg/Ml Vial IV PUSH Q6H PRN CONGESTION/SECRETIONS Hydromorphone HCl 2 mg 05/01/22 13:12 05/09/22 04:11 Hydromorphone Hcl Inj (*Crx) 1 Mg/Ml Syr IV PUSH 2 mg Q2H PRN Administration PAIN/DYSPNEA Hydromorphone HCl 50 mg/ 100 mls @ 2 mls/hr 05/01/22 13:15 05/08/22 14:03 Sodium Chloride IV CONT 1 mg/hr .Q24H ALOK 2 mls/hr Administration 1 MG/HR Olanzapine 5 mg 05/07/22 21:00 05/09/22 09:20 Olanzapine 10 Mg Inj Vial IM 5 mg Q12HR ALOK Administration Olanzapine 2.5 mg 05/07/22 10:43 05/08/22 04:10 Olanzapine 10 Mg Inj Vial IM 2.5 mg Q6H PRN Administration Agitation
[2022-05-09] MEDS: HYDROmorphone HCL/PF (*CRX) 50 MG in SODIUM CHLORIDE 0.9% IV 95 ML IV CONT (13:55)
[2022-05-09 20:00] VITALS: BP 93/72; PULSE 95; RESP 6; TEMP 36.1; O2SAT 93
[2022-05-10] MEDS: PHENobarbitaL sodium (*CRX) 130 MG/ML VIAL 60 MG IV PUSH ×3 (06:17→20:25)
[2022-05-10] MEDS: diazePAM INJ (*CRX) 10 MG/2 ML SYRINGE IV PUSH ×4 (06:17→23:51)
[2022-05-10 06:25] VITALS: RESP 10
[2022-05-10 08:00] VITALS: BP 107/73; PULSE 102; RESP 6; TEMP 36.9; O2SAT 81
[2022-05-10] MEDS: OLANZapine 10 MG INJ VIAL 5 MG IM ×2 (09:16→20:24)
[2022-05-10] MEDS: ARTIFICIAL TEARS OPHTH SOLN 15 ML BOTTLE 1 DROP EACH EYE (09:16)
[2022-05-10] MEDS: HYDROmorphone HCL INJ (*CRX) 1 MG/ML SYR 2 MG IV PUSH (09:19)
[2022-05-10] MEDS: diazePAM INJ (*CRX) 10 MG/2 ML SYRINGE 5 MG IV PUSH ×2 (09:19→21:44)
[2022-05-10] MEDS: WATER, STERILE FOR INJECTION 10 ML VIAL XX (09:26)
[2022-05-10] MEDS: HYDROmorphone HCL/PF (*CRX) 50 MG in SODIUM CHLORIDE 0.9% IV 95 ML IV CONT (13:30)
--- NOTE | 2022-05-10 17:31 | PM.IMPN ---
Progress Note: A&P Assessment and Plan (1) Palliative care by specialist: Code(s): Z51.5 - Encounter for palliative care Status: Acute Assessment and Plan: Meets inpatient hospice criteria due to requiring continuous IV hydromorphone for analgesia and intermittent IV lorazepam for agitation He is likely experiencing end of life delirium due to a combination of dehydration, malnutrition, metastatic lung cancer with possible hypercalcemia, and medication 05/02 current palliative regimen effective for symptom control 05/03 current palliative regimen effective for symptom control 05/04 scheduled olanzapine and lorazepam 05/05 continue current palliative regimen and discussed prognosis with family at bedside 05/06 increased olanzapine to 5mg q 12 hrs 05/07 olanzapine not increased 05/06 as requesed, but accomplished today, switched to diazepam due to lorazepam shortage 05/08 comfortabe so no med changes 05/09 continued palliative sedation 05/10 continued palliative regimen (2) Lung cancer: Code(s): C34.90 - Malignant neoplasm of unspecified part of unspecified bronchus or lung Status: Acute Subjective Date/time seen: 05/10/22 17:31 05/09 PM awakened and sat up in bed. Calmed with prn meds. Sleeping since. Review of Systems Review of Systems: ROS unobtainable: Yes unobtainable due to medical condition Exam Narrative: HEENT: PERRL, sclerae nonicteric, pharyngeal mucosa pink and intact NECK: No JVD CHEST: Coarse BS. Normal effort. HEART: NL S1/S2, regular, no murmur ABDOMEN: BS+, soft, nontender, no mass, no bruits EXTREMITIES: no pitting ankle edema NEUROLOGIC: CN intact and symmetric to inspection. MUSCULOSKELETAL: Tone and strength symmetric but with generalized weakness PSYCH: sleeping Objective Data Vital Signs Vital Signs: Vital Signs - 24 hr 05/09/22 20:00 05/09/22 20:00 05/10/22 06:25 Temperature 96.9 F L Pulse Rate 95 Respiratory Rate 6 L 10 L Blood Pressure 93/72 L Pulse Oximetry 93 Oxygen Delivery Room Air 05/10/22 08:00 05/10/22 09:15 Temperature 98.4 F Pulse Rate 102 H Respiratory Rate 6 L Blood Pressure 107/73 Pulse Oximetry 81 L Oxygen Delivery Room Air Intake/Output Intake/Output: Intake & Output 05/07/22 05/08/22 05/09/22 05/10/22 23:59 23:59 23:59 23:59 Intake Total 54 624 53 47 Output Total 300 Balance 54 624 53 -253 Meds/Results Medications: Active Medications Generic Name Dose Route Start Last Admin Trade Name Freq PRN Reason Stop Dose Admin Acetaminophen 650 mg 05/01/22 13:15 Acetaminophen 650 Mg Suppository RECTAL Q6H PRN Fever Artificial Tears 1 drop 05/01/22 21:00 05/10/22 09:16 Artificial Tears Ophth Soln 15 Ml Bottle EACH EYE 1 drop Q12H ALOK Administration Artificial Tears 1 drop 05/01/22 13:16 Artificial Tears Ophth Soln 15 Ml Bottle EACH EYE PRN PRN DRY EYES Bisacodyl 10 mg 05/01/22 13:15 Bisacodyl 10 Mg Suppository RECTAL DAILY PRN Constipation Diazepam 5 mg 05/08/22 13:10 05/10/22 09:19 Diazepam Inj (*Crx) 10 Mg/2 Ml Syringe IV PUSH 5 mg Q3H PRN Administration AGITATION Diazepam 10 mg 05/08/22 12:00 05/10/22 13:56 Diazepam Inj (*Crx) 10 Mg/2 Ml Syringe IV PUSH 10 mg Q6HR ALOK Administration Glycopyrrolate 0.1 mg 05/01/22 13:14 Glycopyrrolate Inj (*Sp) 0.2 Mg/Ml Vial IV PUSH Q6H PRN CONGESTION/SECRETIONS Hydromorphone HCl 2 mg 05/01/22 13:12 05/10/22 09:19 Hydromorphone Hcl Inj (*Crx) 1 Mg/Ml Syr IV PUSH 2 mg Q2H PRN Administration PAIN/DYSPNEA Hydromorphone HCl 50 mg/ 100 mls @ 2 mls/hr 05/01/22 13:15 05/10/22 13:30 Sodium Chloride IV CONT 1 mg/hr .Q24H ALOK 2 mls/hr Administration 1 MG/HR Miscellaneous Information 1 each 05/10/22 00:01 05/10/22 16:28 Dilaudid Drip_ Needs To Be Renewed Or It Will Automatically Discontinue. XX 06/09/22 00:00 Not Given CLARIFY
[2022-05-10 20:00] VITALS: BP 100/72; PULSE 102; RESP 18; TEMP 36.2; O2SAT 90
[2022-05-11] MEDS: diazePAM INJ (*CRX) 10 MG/2 ML SYRINGE IV PUSH ×3 (05:21→17:33)
[2022-05-11] MEDS: PHENobarbitaL sodium (*CRX) 130 MG/ML VIAL 60 MG IV PUSH ×3 (05:21→22:32)
[2022-05-11 08:00] VITALS: BP 96/70; PULSE 112; RESP 12; TEMP 37; O2SAT 91
[2022-05-11] MEDS: OLANZapine 10 MG INJ VIAL 5 MG IM ×2 (09:17→22:14)
[2022-05-11] MEDS: ARTIFICIAL TEARS OPHTH SOLN 15 ML BOTTLE 1 DROP EACH EYE ×2 (09:18→22:14)
[2022-05-11] MEDS: WATER, STERILE FOR INJECTION 10 ML VIAL XX (09:23)
[2022-05-11] MEDS: HYDROmorphone HCL INJ (*CRX) 2 MG/ML VIAL 4 MG IV PUSH (11:14)
[2022-05-11] MEDS: HYDROmorphone HCL/PF (*CRX) 50 MG in SODIUM CHLORIDE 0.9% IV 95 ML IV CONT (13:18)
[2022-05-11 14:05] VITALS: O2SAT 91
--- NOTE | 2022-05-11 16:35 | PM.IMPN ---
Progress Note: A&P Assessment and Plan (1) Palliative care by specialist: Code(s): Z51.5 - Encounter for palliative care Status: Acute Assessment and Plan: Meets inpatient hospice criteria due to requiring continuous IV hydromorphone for analgesia and intermittent IV lorazepam for agitation He is likely experiencing end of life delirium due to a combination of dehydration, malnutrition, metastatic lung cancer with possible hypercalcemia, and medication 05/02 current palliative regimen effective for symptom control 05/03 current palliative regimen effective for symptom control 05/04 scheduled olanzapine and lorazepam 05/05 continue current palliative regimen and discussed prognosis with family at bedside 05/06 increased olanzapine to 5mg q 12 hrs 05/07 olanzapine not increased 05/06 as requesed, but accomplished today, switched to diazepam due to lorazepam shortage 05/08 comfortabe so no med changes 05/09 continued palliative sedation 05/10 continued palliative regimen 05/11 due to discomfort increased hydromorphone to 2mg/hr (2) Lung cancer: Code(s): C34.90 - Malignant neoplasm of unspecified part of unspecified bronchus or lung Status: Acute Subjective Date/time seen: 05/11/22 16:35 EARLY AM AWAKENED AND REPORTED PAIN. NONE SINCE DRIP INCREASED. Review of Systems Review of Systems: ROS unobtainable: Yes unobtainable due to medical condition Exam Narrative: RESTING COMFORTABLE WITH LONG APNEAS Objective Data Vital Signs Vital Signs: Vital Signs - 24 hr 05/10/22 20:00 05/11/22 08:00 05/11/22 09:15 Temperature 97.1 F L 98.6 F Pulse Rate 102 H 112 H Respiratory Rate 18 12 Blood Pressure 100/72 96/70 L Pulse Oximetry 90 91 Oxygen Delivery Room Air 05/11/22 14:05 Temperature Pulse Rate Respiratory Rate Blood Pressure Pulse Oximetry 91 Oxygen Delivery Room Air Intake/Output Intake/Output: Intake & Output 05/08/22 05/09/22 05/10/22 05/11/22 23:59 23:59 23:59 23:59 Intake Total 624 53 47 55 Output Total 300 50 Balance 624 53 -253 5 Meds/Results Medications: Active Medications Generic Name Dose Route Start Last Admin Trade Name Freq PRN Reason Stop Dose Admin Acetaminophen 650 mg 05/01/22 13:15 Acetaminophen 650 Mg Suppository RECTAL Q6H PRN Fever Artificial Tears 1 drop 05/01/22 21:00 05/11/22 09:18 Artificial Tears Ophth Soln 15 Ml Bottle EACH EYE 1 drop Q12H ALOK Administration Artificial Tears 1 drop 05/01/22 13:16 Artificial Tears Ophth Soln 15 Ml Bottle EACH EYE PRN PRN DRY EYES Bisacodyl 10 mg 05/01/22 13:15 Bisacodyl 10 Mg Suppository RECTAL DAILY PRN Constipation Diazepam 5 mg 05/08/22 13:10 05/10/22 21:44 Diazepam Inj (*Crx) 10 Mg/2 Ml Syringe IV PUSH 5 mg Q3H PRN Administration AGITATION Diazepam 10 mg 05/08/22 12:00 05/11/22 12:35 Diazepam Inj (*Crx) 10 Mg/2 Ml Syringe IV PUSH 10 mg Q6HR ALOK Administration Glycopyrrolate 0.1 mg 05/01/22 13:14 Glycopyrrolate Inj (*Sp) 0.2 Mg/Ml Vial IV PUSH Q6H PRN CONGESTION/SECRETIONS Hydromorphone HCl 4 mg 05/11/22 09:50 05/11/22 11:14 Hydromorphone Hcl Inj (*Crx) 2 Mg/Ml Vial IV PUSH 4 mg Q2H PRN Administration PAIN/DYSPNEA Hydromorphone HCl 50 mg/ 100 mls @ 4 mls/hr 05/01/22 13:15 05/11/22 13:18 Sodium Chloride IV CONT 05/20/22 23:59 2 mg/hr .Q24H ALOK 4 mls/hr Administration 2 MG/HR Olanzapine 5 mg 05/07/22 21:00 05/11/22 09:17 Olanzapine 10 Mg Inj Vial IM 5 mg Q12HR ALOK Administration Olanzapine 2.5 mg 05/07/22 10:43 05/08/22 04:10 Olanzapine 10 Mg Inj Vial IM 2.5 mg Q6H PRN Administration Agitation Phenobarbital Sodium 60 mg 05/08/22 22:00 05/11/22 13:21 Phenobarbital Sodium (*Crx) 130 Mg/Ml Vial IV PUSH 60 mg Q8HR ALOK Administration Prochlorperazine Edisylate 10 mg 05/01/22 13:15 Prochlorperazine Edisylate 1
[2022-05-11 20:00] VITALS: BP 105/82; PULSE 101; RESP 5; TEMP 36.3; O2SAT 81
[2022-05-12] MEDS: diazePAM INJ (*CRX) 10 MG/2 ML SYRINGE 5 MG IV PUSH (00:08)
[2022-05-12] MEDS: HYDROmorphone HCL INJ (*CRX) 2 MG/ML VIAL 4 MG IV PUSH (00:08)
[2022-05-12] MEDS: diazePAM INJ (*CRX) 10 MG/2 ML SYRINGE IV PUSH ×4 (05:56→18:03)
[2022-05-12] MEDS: PHENobarbitaL sodium (*CRX) 130 MG/ML VIAL 60 MG IV PUSH ×3 (05:56→21:25)
[2022-05-12 08:00] VITALS: BP 90/77; PULSE 112; RESP 4; TEMP 36.6; O2SAT 75
[2022-05-12] MEDS: ARTIFICIAL TEARS OPHTH SOLN 15 ML BOTTLE 1 DROP EACH EYE ×2 (08:35→21:26)
[2022-05-12] MEDS: OLANZapine 10 MG INJ VIAL 5 MG IM ×2 (08:36→21:25)
[2022-05-12] MEDS: HYDROmorphone HCL/PF (*CRX) 50 MG in SODIUM CHLORIDE 0.9% IV 95 ML IV CONT (11:26)
[2022-05-12 19:45] VITALS: BP 90/73; PULSE 113; RESP 3; TEMP 37; O2SAT 85
[2022-05-13] MEDS: diazePAM INJ (*CRX) 10 MG/2 ML SYRINGE 5 MG IV PUSH (00:17)
[2022-05-13] MEDS: PHENobarbitaL sodium (*CRX) 130 MG/ML VIAL 60 MG IV PUSH ×3 (05:54→20:34)
[2022-05-13] MEDS: diazePAM INJ (*CRX) 10 MG/2 ML SYRINGE IV PUSH ×4 (05:55→23:29)
[2022-05-13] MEDS: HYDROmorphone HCL/PF (*CRX) 50 MG in SODIUM CHLORIDE 0.9% IV 95 ML IV CONT (06:19)
[2022-05-13 08:00] VITALS: BP 96/73; PULSE 116; RESP 14; TEMP 36.8; O2SAT 63
[2022-05-13] MEDS: OLANZapine 10 MG INJ VIAL 5 MG IM ×2 (08:30→20:33)
[2022-05-13] MEDS: ARTIFICIAL TEARS OPHTH SOLN 15 ML BOTTLE 1 DROP EACH EYE (08:30)
--- NOTE | 2022-05-13 17:37 | PM.IMPN ---
Progress Note: A&P Assessment and Plan (1) Palliative care by specialist: Code(s): Z51.5 - Encounter for palliative care Status: Acute Assessment and Plan: Meets inpatient hospice criteria due to requiring continuous IV hydromorphone for analgesia and intermittent IV lorazepam for agitation He is likely experiencing end of life delirium due to a combination of dehydration, malnutrition, metastatic lung cancer with possible hypercalcemia, and medication 05/02 current palliative regimen effective for symptom control 05/03 current palliative regimen effective for symptom control 05/04 scheduled olanzapine and lorazepam 05/05 continue current palliative regimen and discussed prognosis with family at bedside 05/06 increased olanzapine to 5mg q 12 hrs 05/07 olanzapine not increased 05/06 as requesed, but accomplished today, switched to diazepam due to lorazepam shortage 05/08 comfortabe so no med changes 05/09 continued palliative sedation 05/10 continued palliative regimen 05/11 due to discomfort increased hydromorphone to 2mg/hr 05/12 continued current regimen 05/13 continue current regimen (2) Lung cancer: Code(s): C34.90 - Malignant neoplasm of unspecified part of unspecified bronchus or lung Status: Acute Subjective Date/time seen: 05/13/22 17:37 Remains comfortable with family at bedide. Review of Systems Review of Systems: ROS unobtainable: Yes unobtainable due to medical condition Exam Narrative: RESTING COMFORTABLE WITH LONG APNEAS Objective Data Vital Signs Vital Signs: Vital Signs - 24 hr 05/12/22 19:45 05/12/22 20:00 05/13/22 08:00 Temperature 98.6 F 98.2 F Pulse Rate 113 H 116 H Respiratory Rate 3 L 14 Blood Pressure 90/73 L 96/73 L Pulse Oximetry 85 L 63 L Oxygen Delivery Room Air 05/13/22 08:00 Temperature Pulse Rate 116 H Respiratory Rate 14 Blood Pressure Pulse Oximetry 63 L Oxygen Delivery Room Air Intake/Output Intake/Output: Intake & Output 05/10/22 05/11/22 05/12/22 05/13/22 23:59 23:59 23:59 23:59 Intake Total 47 55 100 100 Output Total 300 700 100 Balance -253 -645 100 0 Meds/Results Medications: Active Medications Generic Name Dose Route Start Last Admin Trade Name Freq PRN Reason Stop Dose Admin Acetaminophen 650 mg 05/01/22 13:15 Acetaminophen 650 Mg Suppository RECTAL Q6H PRN Fever Artificial Tears 1 drop 05/01/22 21:00 05/13/22 08:30 Artificial Tears Ophth Soln 15 Ml Bottle EACH EYE 1 drop Q12H ALOK Administration Artificial Tears 1 drop 05/01/22 13:16 Artificial Tears Ophth Soln 15 Ml Bottle EACH EYE PRN PRN DRY EYES Bisacodyl 10 mg 05/01/22 13:15 Bisacodyl 10 Mg Suppository RECTAL DAILY PRN Constipation Diazepam 5 mg 05/08/22 13:10 05/13/22 00:17 Diazepam Inj (*Crx) 10 Mg/2 Ml Syringe IV PUSH 5 mg Q3H PRN Administration AGITATION Diazepam 10 mg 05/08/22 12:00 05/13/22 17:03 Diazepam Inj (*Crx) 10 Mg/2 Ml Syringe IV PUSH 10 mg Q6HR ALOK Administration Glycopyrrolate 0.1 mg 05/01/22 13:14 Glycopyrrolate Inj (*Sp) 0.2 Mg/Ml Vial IV PUSH Q6H PRN CONGESTION/SECRETIONS Hydromorphone HCl 4 mg 05/11/22 09:50 05/12/22 00:08 Hydromorphone Hcl Inj (*Crx) 2 Mg/Ml Vial IV PUSH 4 mg Q2H PRN Administration PAIN/DYSPNEA Hydromorphone HCl 50 mg/ 100 mls @ 4 mls/hr 05/01/22 13:15 05/13/22 06:19 Sodium Chloride IV CONT 05/20/22 23:59 2 mg/hr .Q24H ALOK 4 mls/hr Administration 2 MG/HR Olanzapine 5 mg 05/07/22 21:00 05/13/22 08:30 Olanzapine 10 Mg Inj Vial IM 5 mg Q12HR ALOK Administration Olanzapine 2.5 mg 05/07/22 10:43 05/08/22 04:10 Olanzapine 10 Mg Inj Vial IM 2.5 mg Q6H PRN Administration Agitation Phenobarbital Sodium 60 mg 05/08/22 22:00 05/13/22 14:27 Phenobarbital Sodium (*Crx) 130 Mg/Ml Vial IV PUSH 60 mg Q8HR ALOK Administration Prochlorperazine E
[2022-05-13 20:00] VITALS: BP 92/70; PULSE 99; RESP 3; TEMP 36.3; O2SAT 73
[2022-05-14] MEDS: PHENobarbitaL sodium (*CRX) 130 MG/ML VIAL 60 MG IV PUSH ×3 (05:26→19:50)
[2022-05-14] MEDS: diazePAM INJ (*CRX) 10 MG/2 ML SYRINGE IV PUSH ×3 (05:26→18:43)
[2022-05-14 05:59] VITALS: PULSE 124; RESP 2
[2022-05-14] MEDS: HYDROmorphone HCL/PF (*CRX) 50 MG in SODIUM CHLORIDE 0.9% IV 95 ML IV CONT (05:59)
[2022-05-14 08:00] VITALS: BP 72/47; PULSE 127; RESP 12; TEMP 36.8; O2SAT 57
[2022-05-14] MEDS: HYDROmorphone HCL INJ (*CRX) 2 MG/ML VIAL 4 MG IV PUSH ×3 (10:23→19:50)
[2022-05-14] MEDS: OLANZapine 10 MG INJ VIAL 5 MG IM ×2 (10:27→19:50)
[2022-05-14] MEDS: ARTIFICIAL TEARS OPHTH SOLN 15 ML BOTTLE 1 DROP EACH EYE (19:59)
[2022-05-14 20:00] VITALS: BP 56/32; PULSE 116; RESP 9; TEMP 37.6
--- NOTE | 2022-05-15 00:56 | PC.NURSE ---
This patient 05/14/22 at 2308. Patient pronounced by Tereza Yap and Ken Yap.
--- NOTE | 2022-05-18 18:45 | P.DN_ITS ---
Discharge Summary Date and Time Date of : 05/14/22 Time of : 23:08 Provider Pronounced By: Ken Yap and Hyun Yap Probable Cause of Probable Cause of : Lung Cancer Summary Hospital Course: Admitted from outpatient hospice to inpatient hospice due to uncontrolled pain and terminal agitation. Medications titrated to comfort. Mr. Navarro peacefully. Additional Data Confirmation of as documented by pronouncing clinician: Palpable Pulses, Heart Tones and Breath Sounds Name of Provider Notified: Saul Bass Time Provider Notified: 23:18 Provider Requests Autopsy: No Family Requests Autopsy: No [facility] [employer] Notified: Yes Date [facility] Notified of : 05/14/22 Time [facility] Notified of : 23:23
== END 2022-05-14 23:08 | disposition expired | DRG 951 ==
PROVIDERS: Admitting Provider Internal Medicine; Visit Provider Internal Medicine
DX: Z51.5 Encounter for palliative care (principal); E46 Unspecified protein-calorie malnutrition; C34.90 Malignant neoplasm of unspecified part of unspecified bronchus or lung; C79.9 Secondary malignant neoplasm of unspecified site; J44.9 Chronic obstructive pulmonary disease, unspecified; F17.210 Nicotine dependence, cigarettes, uncomplicated; E86.0 Dehydration; R32 Unspecified urinary incontinence; Z66 Do not resuscitate
CPT/HCPCS: A9270; J1170; J2060; J2560; J3360